=== PATIENT | female | born 1980 | race Caucasian/White ===

== ENCOUNTER 2019-11-03 21:15 | Emergency (ER) | payer SELFPAY ==
--- NOTE | 2019-11-03 22:57 | ER ---
Nurse's Notes [facility] Name: Karen Castañeda Age: 38 yrs Sex: Female : 1980 Arrival Date: 11/03/2019 Time: 21:20 Bed 2 Private MD: Diagnosis: Headache;Weakness Presentation: 11/02 21:22 Chief complaint: Patient states: "I've been dizzy all day, light- headed. Body pain, aj1 headache." Denies fever. Coronavirus screen: The patient has NOT traveled to a country currently being monitored by the [facility] within the last 14 days. Ebola Screen: Patient denies travel to an Ebola-affected area in the 21 days before illness onset. Initial Sepsis Screen: Does the patient meet any 2 criteria? HR > 90 bpm. No. Patient's initial sepsis screen is negative. Does the patient have a suspected source of infection? No. Patient's initial sepsis screen is negative. Risk Assessment: Do you want to hurt yourself or someone else? Patient reports no desire to harm self or others. 21:22 Method Of Arrival: Ambulatory [facility] 21:22 Acuity: BASSEM 3 aj1 21:22 Onset of symptoms was November 03, 2019. rr5 Triage Assessment: 21:24 Headache History: Denies prior headaches. General: Appears in no apparent distress. aj1 comfortable, Behavior is calm, cooperative, appropriate for age. Pain: Pain currently is 8 out of 10 on a pain scale. Pain began this morning Also complains of dizziness. Neuro: Level of Consciousness is awake, alert, obeys commands, Oriented to person, place, time, situation, Moves all extremities. Full function Gait is steady, Speech is normal, Facial symmetry appears normal, Reports dizziness, headache. Cardiovascular: Patient's skin is warm and dry. Respiratory: Airway is patent Respiratory effort is even, unlabored, Respiratory pattern is regular, symmetrical. 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 - Social history:: Smoking status: Patient reports the use of cigarette tobacco products, smokes one-half pack cigarettes per day. - Family history:: not pertinent. Screenin:00 Abuse screen: Denies threats or abuse. Denies injuries from another. Nutritional rr5 screening: No deficits noted. Tuberculosis screening: No symptoms or risk factors identified. Fall Risk None identified. Total Momin Fall Scale indicates No Risk (0-24 pts). Assessment: 22:30 General: Appears in no apparent distress. uncomfortable, Behavior is calm, cooperative, rr5 appropriate for age. Pain: Complains of pain in generalized Pain currently is 8 out of 10 on a pain scale. Quality of pain is described as aching, Pain began gradually, Is intermittent. Neuro: Level of Consciousness is awake, alert, obeys commands, Oriented to person, place, time, Reports dizziness, headache light headedness. 22:30 Cardiovascular: Capillary refill < 3 seconds Patient's skin is warm and dry. rr5 Respiratory: Airway is patent Trachea midline Respiratory effort is even, unlabored, Respiratory pattern is regular, symmetrical. GI: No signs and/or symptoms were reported involving the gastrointestinal system. : No signs and/or symptoms were reported regarding the genitourinary system. EENT: No signs and/or symptoms were reported regarding the EENT system. Derm: Skin is intact, is healthy with good turgor, Skin temperature is warm. Musculoskeletal: Circulation, motion, and sensation intact. Capillary refill < 3 seconds. 23:14 Reassessment: Patient appears in no apparent distress at this time. Patient is alert, rr5 oriented x 3, equal unlabored respirations, skin warm/dry/pink. discharge instruction given and explained without complaints made. 23:14 Reassessment: no nausea or vomiting reported. rr5 Vital Signs: 21:24 BP 125 / 84; Pulse 99; Resp 18; Temp 98.2; Pulse Ox 100% on R/A; Height 5 ft. 9 in. aj1 (175.26 cm); Pain 8/10; 22:00 BP 119 / 80; Pulse 90; Resp 15; Pulse Ox 100% ; rr5 23:00 BP 121 / 75; Pulse 89; Resp 17; Pulse Ox 99% ; rr5 ED Course: 21:20 Patient arrived in ED. jg7 21:24 Triage completed. aj1 21:24 Arm band placed on Patient placed in waiting room, Patient notified of wait time. aj1 21:55 Aidan Earl MD is Attending Physician. [facility] 22:00 Patient has correct armband on for positive identification. Bed in low position. Call rr5 light in reach. Side rails up X2. 22:00 Pulse ox on. NIBP on. rr5 22:02 Karan Manrique, RN is Primary Nurse. rr5 23:13 No provider procedures requiring assistance completed. Patient did not have IV access rr5 during this emergency room visit. Administered Medications: 23:00 Drug: Tylenol 650 mg Route: PO; rr5 23:15 Follow up: Response: Medication administered at discharge. rr5 Outcome: 22:57 Discharge ordered by . [facility] 23:13 Discharged to home ambulatory. rr5 23:13 Condition: stable 23:13 Discharge instructions given to patient, Instructed on discharge instructions, follow up and referral plans. Demonstrated understanding of instructions, follow-up care. 23:15 Patient left the ED. rr5 Signatures: Yumiko Martinez RN RN aj1 Aidan Earl MD MD cha Roque, Raymond, RN RN rr5 Yessenia Arnold jg7
--- NOTE | 2019-11-03 22:58 | EDPHYS ---
Physician Documentation [facility] Name: Karen Castañeda Age: 38 yrs Sex: Female : 1980 Arrival Date: 11/03/2019 Time: 21:20 Bed 2 Private MD: ED Physician Aidan Earl HPI: 11/02 22:53 This 38 yrs old Female presents to ER via Ambulatory with complaints of julieth Dizziness, Headache, BODY ACHES. 22:53 The patient presents with dizziness, generalized weakness. Onset: The symptoms/episode julieth began/occurred this morning. Context: occurred at home. Modifying factors: The symptoms are alleviated by nothing, the symptoms are aggravated by nothing. Associated signs and symptoms: The patient has no apparent associated signs or symptoms. Severity of symptoms: At their worst the symptoms were mild in the emergency department the symptoms are unchanged. Patient's baseline: Neuro: alert and fully oriented. The patient has not experienced similar symptoms in the past. 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 - Social history:: Smoking status: Patient reports the use of cigarette tobacco products, smokes one-half pack cigarettes per day. - Family history:: not pertinent. ROS: 22:53 Constitutional: Negative for fever, chills, and weight loss, Eyes: Negative for injury, julieth pain, redness, and discharge, ENT: Negative for injury, pain, and discharge, Neck: Negative for injury, pain, and swelling, Cardiovascular: Negative for chest pain, palpitations, and edema, Respiratory: Negative for shortness of breath, cough, wheezing, and pleuritic chest pain, Abdomen/GI: Negative for abdominal pain, nausea, vomiting, diarrhea, and constipation, Back: Negative for injury and pain, : Negative for injury, bleeding, discharge, and swelling, MS/Extremity: Negative for injury and deformity, Skin: Negative for injury, rash, and discoloration, Psych: Negative for depression, anxiety, suicide ideation, homicidal ideation, and hallucinations, Allergy/Immunology: Negative for hives, rash, and allergies, Endocrine: Negative for neck swelling, polydipsia, polyuria, polyphagia, and marked weight changes, Hematologic/Lymphatic: Negative for swollen nodes, abnormal bleeding, and unusual bruising. 22:53 Neuro: Positive for headache, weakness. Exam: 22:53 Constitutional: This is a well developed, well nourished patient who is awake, alert, julieth and in no acute distress. Head/Face: Normocephalic, atraumatic. Eyes: Pupils equal round and reactive to light, extra-ocular motions intact. Lids and lashes normal. Conjunctiva and sclera are non-icteric and not injected. Cornea within normal limits. Periorbital areas with no swelling, redness, or edema. ENT: Nares patent. No nasal discharge, no septal abnormalities noted. Tympanic membranes are normal and external auditory canals are clear. Oropharynx with no redness, swelling, or masses, exudates, or evidence of obstruction, uvula midline. Mucous membranes moist. Neck: Trachea midline, no thyromegaly or masses palpated, and no cervical lymphadenopathy. Supple, full range of motion without nuchal rigidity, or vertebral point tenderness. No Meningismus. Chest/axilla: Normal chest wall appearance and motion. Nontender with no deformity. No lesions are appreciated. Cardiovascular: Regular rate and rhythm with a normal S1 and S2. No gallops, murmurs, or rubs. Normal PMI, no JVD. No pulse deficits. Respiratory: Lungs have equal breath sounds bilaterally, clear to auscultation and percussion. No rales, rhonchi or wheezes noted. No increased work of breathing, no retractions or nasal flaring. Abdomen/GI: Soft, non-tender, with normal bowel sounds. No distension or tympany. No guarding or rebound. No evidence of tenderness throughout. Back: No spinal tenderness. No costovertebral tenderness. Full range of motion. Skin: Warm, dry with normal turgor. Normal color with no rashes, no lesions, and no evidence of cellulitis. MS/ Extremity: Pulses equal, no cyanosis. Neurovascular intact. Full, normal range of motion. Neuro: Awake and alert, GCS 15, oriented to person, place, time, and situation. Cranial nerves II-XII grossly intact. Motor strength 5/5 in all extremities. Sensory grossly intact. Cerebellar exam normal. Normal gait. Psych: Awake, alert, with orientation to person, place and time. Behavior, mood, and affect are within normal limits. 22:53 Neck: ROM/movement: is normal, no acute changes. 22:53 Musculoskeletal/extremity: DVT Exam: No signs of deep vein thrombosis. no pain, no swelling, no tenderness, negative Homans' sign noted on exam, no appreciated bluish discoloration, no erythema, no increased warmth. Vital Signs: 21:24 BP 125 / 84; Pulse 99; Resp 18; Temp 98.2; Pulse Ox 100% on R/A; Height 5 ft. 9 in. aj1 (175.26 cm); Pain 8/10; 22:00 BP 119 / 80; Pulse 90; Resp 15; Pulse Ox 100% ; rr5 23:00 BP 121 / 75; Pulse 89; Resp 17; Pulse Ox 99% ; rr5 MDM: 21:55 [facility] screened. [facility] 11/02 22:53 Order name: PO challenge; Complete Time: 23:07 [facility] Administered Medications: 23:00 Drug: Tylenol 650 mg Route: PO; rr5 23:15 Follow up: Response: Medication administered at discharge. rr5 Disposition: 11/03/19 22:57 Discharged to Home. Impression: Headache, Weakness. - Condition is Stable. - Discharge Instructions: General Headache Without Cause, Weakness, Fatigue, Weakness, [id number], General Headache Without Cause, [id number]. - Work release form, Medication Reconciliation Form, Thank You Letter, Antibiotic Education, Prescription Opioid Use form. - Follow up: Private Physician; When: 2 - 3 days; Reason: Recheck today's complaints, Continuance of care, Re-evaluation by your physician. - Problem is new. - Symptoms have improved. Signatures: Yumiko Martinez RN RN aj1 Aidan Earl MD MD cha Roque, Raymond, RN RN rr5 Corrections: (The following items were deleted from the chart) 23:15 22:57 11/03/2019 22:57 Discharged to Home. Impression: Headache; Weakness. Condition is rr5 Stable. Forms are Medication Reconciliation Form, Thank You Letter, Antibiotic Education, Prescription Opioid Use. Follow up: Private Physician; When: 2 - 3 days; Reason: Recheck today's complaints, Continuance of care, Re-evaluation by your physician. Problem is new. Symptoms have improved. julieth
[2019-11-03] MEDS ORDERED: ACETAMINOPHEN 325 MG TABLET ONE (23:07)
[2019-11-03 23:49] VITALS: BP 125/84; TEMP 98.2; O2SAT 100
== END 2019-11-03 23:15 | disposition home or self-care (01) ==
LOC: ER 21:15
DX: R53.1 Weakness (principal); F17.210 Nicotine dependence, cigarettes, uncomplicated
CPT/HCPCS: 99283

== ENCOUNTER 2019-12-25 13:37 | Emergency (ER) | payer SELFPAY ==
--- NOTE | 2019-12-25 16:05 | RAD REPORT ---
EXAM DESCRIPTION: RAD - Chest Pa And Lat (2 Views) - 12/25/2019 2:58 pm CLINICAL HISTORY: Cough;SOB Chest pain. COMPARISON: Chest Single View dated 11/14/2016; CHEST SINGLE VIEW dated 05/31/2015 FINDINGS: The lungs are clear. The heart is normal in size. No displaced fractures. IMPRESSION: No acute or concerning finding suspected.
--- NOTE | 2019-12-25 16:08 | ER ---
Nurse's Notes [facility] Name: Karen Castañeda Age: 39 yrs Sex: Female : 1980 Arrival Date: 12/25/2019 Time: 13:38 Bed 15 Private MD: Diagnosis: Acute bronchitis, unspecified Presentation: 12/24 14:08 Chief complaint: Patient states: "SOB at work, shaking real bad. I was sweating all ca1 night for the past 2 nights and everything seems 'distant'". Reports cough x 3 days. Coronavirus screen: Surgical mask placed on patient. Patient moved to private room, placed in contact and droplet isolation with eye protection until further assessment. Patient reports a cough. Patient reports shortness of breath or difficulty breathing. Patient denies measured and/or subjective temperature greater than 100.4F prior to today's visit. Patient denies travel on a cruise ship or to a country the [facility] currently lists as an affected area. Patient denies contact with known and/or suspected case of COVID-19. Ebola Screen: Patient negative for fever greater than or equal to 101.5 degrees Fahrenheit, and additional compatible Ebola Virus Disease symptoms Patient denies exposure to infectious person. Patient denies travel to an Ebola-affected area in the 21 days before illness onset. No symptoms or risks identified at this time. Initial Sepsis Screen: Does the patient meet any 2 criteria? No. Patient's initial sepsis screen is negative. Does the patient have a suspected source of infection? No. Patient's initial sepsis screen is negative. Risk Assessment: Do you want to hurt yourself or someone else? Patient reports no desire to harm self or others. Onset of symptoms was December 25, 2019. 14:08 Method Of Arrival: Ambulatory ca1 14:08 Acuity: BASSEM 3 ca1 12/25 09:12 Coronavirus screen: [facility] Department has been notified of ss person under investigation for COVID-19. PUI#: [id number]. Triage Assessment: 12/24 14:28 Respiratory: the patient has mild shortness of breath. 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 - Social history:: Smoking status: Patient reports the use of cigarette tobacco products, smokes one-half pack cigarettes per day. Screenin:28 Abuse screen: Denies threats or abuse. Nutritional screening: No deficits noted. rb1 Tuberculosis screening: No symptoms or risk factors identified. Fall Risk None identified. Assessment: 14:28 General: Appears in no apparent distress. comfortable, Behavior is calm, cooperative. rb1 General: Reports chills for feeling ill for 2-3 days, Sweating and having chills x 2 days. General: Pt. reports feeling shaky . Pain: Denies pain. Neuro: Level of Consciousness is awake, alert, obeys commands, Oriented to person, place, time, situation. Cardiovascular: Rhythm is regular. Respiratory: Reports shortness of breath cough that is x 3 days Airway is patent Respiratory effort is even, unlabored, Respiratory pattern is regular, symmetrical. GI: No signs and/or symptoms were reported involving the gastrointestinal system. : No signs and/or symptoms were reported regarding the genitourinary system. Derm: Skin is pink, warm \\T\\ dry. 15:28 Reassessment: Patient appears in no apparent distress at this time. No changes from rb1 previously documented assessment. 16:28 Reassessment: Patient appears in no apparent distress at this time. Patient and/or rb1 family updated on plan of care and expected duration. Pain level reassessed. Patient is alert, oriented x 3, equal unlabored respirations, skin warm/dry/pink. Patient denies pain at this time. Vital Signs: 14:08 BP 131 / 100; Pulse 92; Resp 20 S; Temp 98.2(O); Pulse Ox 97% on R/A; Weight 86.18 kg ca1 (R); Height 5 ft. 9 in. (175.26 cm) (R); Pain 0/10; 15:15 BP 120 / 88; Pulse 83; Resp 19; Pulse Ox 95% on R/A; Pain 0/10; rb1 16:15 BP 125 / 91; Pulse 98; Resp 17; Pulse Ox 99% ; rb1 14:08 Body Mass Index 28.06 (86.18 kg, 175.26 cm) ca1 ED Course: 13:38 Patient arrived in ED. ag5 14:10 Triage completed. ca1 14:11 Arm band placed on right wrist. ca1 14:14 Aidan Petty PA is PHCP. cp 14:14 Mukesh Serra MD is Attending Physician. cp 14:28 Patient has correct armband on for positive identification. Bed in low position. Call rb1 light in reach. Side rails up X 1. Pulse ox on. NIBP on. Warm blanket given. 14:29 Yaima Mayers, RN is Primary Nurse. rb1 14:58 XRAY Chest Pa And Lat (2 Views) In Process Unspecified. EDMS 16:45 No provider procedures requiring assistance completed. Patient did not have IV access rb1 during this emergency room visit. Administered Medications: No medications were administered Outcome: 16:07 Discharge ordered by MD. cp 16:45 Patient left the ED. rb1 16:45 Discharged to home ambulatory. rb1 16:45 Condition: stable 16:45 Discharge instructions given to patient, Instructed on discharge instructions, follow up and referral plans. medication usage, Demonstrated understanding of instructions, follow-up care, medications, Prescriptions given X 2. Addendum: 12/27/2019 15:07 Addendum: Other pt notified of negative COVID-19 swab results. Pt advised to continue d m5 to monitor symptoms, to remain in isolation until symptom free for 72 hours without medication and to return to the ED if symptoms worsen. 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 Patient reports shortness of breath ca1 or difficulty breathing. Patient denies measured and/or subjective temperature greater than 100.4F prior to today's visit. Patient denies travel on a cruise ship or to a country the [facility] currently lists as an affected area. Patient denies contact with known and/or suspected case of COVID-19. ca1 14:16 14:08 Coronavirus screen: Surgical mask placed on patient. Patient moved to private ca1 room, placed in contact and droplet isolation with eye protection until further assessment. Patient reports a cough. Patient reports shortness of breath or difficulty breathing. Patient denies measured and/or subjective temperature greater than 100.4F prior to today's visit. Patient denies travel on a cruise ship or to a country the [facility] currently lists as an affected area. Patient denies contact with known and/or suspected case of COVID-19. ca1
--- NOTE | 2019-12-25 16:08 | EDPHYS ---
Physician Documentation [facility] Name: Karen Castañeda Age: 39 yrs Sex: Female : 1980 Arrival Date: 12/25/2019 Time: 13:38 Bed 15 Private MD: ED Physician Mukesh Serra HPI: 12/24 14:35 This 39 yrs old Female presents to ER via Ambulatory with complaints of cp Shortness Of Breath. 14:35 The patient has shortness of breath with light activity. Onset: The symptoms/episode cp began/occurred 3 day(s) ago. Associated signs and symptoms: Pertinent positives: non-productive cough, fever, Pertinent negatives: chest pain, vomiting. Severity of symptoms: in the emergency department the symptoms are unchanged despite home interventions. 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 - Social history:: Smoking status: Patient reports the use of cigarette tobacco products, smokes one-half pack cigarettes per day. ROS: 14:38 Eyes: Negative for injury, pain, redness, and discharge. cp 14:38 Constitutional: Negative for body aches, chills, fever, poor PO intake. 14:38 ENT: Negative for drainage from ear(s), ear pain, sore throat, difficulty swallowing, difficulty handling secretions. 14:38 Cardiovascular: Negative for chest pain, edema, palpitations. 14:38 Respiratory: Positive for cough, with no reported sputum, shortness of breath, Negative for wheezing. 14:38 Abdomen/GI: Negative for abdominal pain, vomiting, diarrhea, constipation. 14:38 Back: Negative for injury or acute deformity. 14:38 : Negative for urinary symptoms. 14:38 Neuro: Negative for altered mental status, headache, weakness. 14:38 All other systems are negative. Exam: 14:45 Constitutional: The patient appears in no acute distress, alert, awake, non-toxic, well cp developed, well nourished. 14:45 Head/Face: Normocephalic, atraumatic. cp 14:45 Eyes: Periorbital structures: appear normal, Conjunctiva: normal, no exudate, no injection, Sclera: no appreciated abnormality, Lids and lashes: appear normal, bilaterally. 14:45 ENT: External ear(s): are unremarkable, Nose: is normal, Mouth: is normal, Posterior pharynx: is normal, airway is patent, no erythema, no exudate. 14:45 Neck: ROM/movement: is normal, is supple, without pain, no range of motions limitations, no meningismus. 14:45 Chest/axilla: Inspection: normal, Palpation: is normal, no crepitus, no tenderness. 14:45 Cardiovascular: Rate: normal, Rhythm: regular. 14:45 Respiratory: the patient does not display signs of respiratory distress, Respirations: normal, no use of accessory muscles, no retractions, labored breathing, is not present, Breath sounds: are clear throughout, no decreased breath sounds, no stridor, no wheezing. 14:45 Abdomen/GI: Exam negative for discomfort, distension, guarding, Inspection: abdomen appears normal. 14:45 Skin: no rash present. Vital Signs: 14:08 BP 131 / 100; Pulse 92; Resp 20 S; Temp 98.2(O); Pulse Ox 97% on R/A; Weight 86.18 kg ca1 (R); Height 5 ft. 9 in. (175.26 cm) (R); Pain 0/10; 15:15 BP 120 / 88; Pulse 83; Resp 19; Pulse Ox 95% on R/A; Pain 0/10; rb1 16:15 BP 125 / 91; Pulse 98; Resp 17; Pulse Ox 99% ; rb1 14:08 Body Mass Index 28.06 (86.18 kg, 175.26 cm) ca1 MDM: 14:15 Patient medically screened. cp 15:23 Test interpretation: by ED physician or midlevel provider: chest xray negative for cp infiltrates or focal pneumonia. 16:05 Data reviewed: vital signs, nurses notes, lab test result(s), radiologic studies, plain cp films. 16:05 Differential diagnosis: asthma, Bronchitis pneumonia, pulmonary edema, Pulmonary cp Embolism reactive airway disease. Antibiotic administration: Not indicated, the patient does not have an appreciated infiltrate. Counseling: I had a detailed discussion with the patient and/or guardian regarding: the historical points, exam findings, and any diagnostic results supporting the discharge/admit diagnosis, lab results, radiology results, to return to the emergency department if symptoms worsen or persist or if there are any questions or concerns that arise at home, smoking cessation. ED course: VSS. Patient appears non-toxic and no signs of respiratory distress observed. Will discharge to home for continued monitoring. COVID-19 testing performed and patient instructed to self quarantine while awaiting results. 12/24 14:27 Order name: Influenza Screen (a \T\ B); Complete Time: 15:38 12/24 15:38 Interpretation: Reviewed. 12/24 14:27 Order name: Strep; Complete Time: 15:38 12/24 15:38 Interpretation: Reviewed. 12/24 14:27 Order name: XRAY Chest Pa And Lat (2 Views); Complete Time: 16:11 12/24 16:12 Interpretation: Report reviewed. 12/24 14:27 Order name: COVID-19 12/24 15:19 Order name: Throat Culture EDMS Administered Medications: No medications were administered Disposition: 17:29 Co-signature as Attending Physician, Mukesh Serra MD. rn Disposition: 12/25/19 16:07 Discharged to Home. Impression: Acute bronchitis, unspecified. - Condition is Stable. - Discharge Instructions: Acute Bronchitis, Adult. - Prescriptions for Tessalon Perles 100 mg Oral Capsule - take 2 capsule by ORAL route every 8 hours As needed; 30 capsule. Albuterol Sulfate 90 mcg/actuation - inhale 1-2 puff by INHALATION route every 4-6 hours; 1 Inhaler. - Medication Reconciliation Form, Thank You Letter, Antibiotic Education, Prescription Opioid Use, Work release form form. - Follow up: Private Physician; When: 1 - 2 days; Reason: Worsening of condition. - Problem is new. - Symptoms have improved. Signatures: Dispatcher [employer] EDMS Mukesh Serra MD MD rn Page, Corey, PA PA cp Barber, Rebecca, RN RN rb1 Maggie Zimmerman RN RN ca1 Corrections: (The following items were deleted from the chart) 16:45 16:07 12/25/2019 16:07 Discharged to Home. Impression: Acute bronchitis, unspecified. rb1 Condition is Stable. Forms are Medication Reconciliation Form, Thank You Letter, Antibiotic Education, Prescription Opioid Use. Follow up: Private Physician; When: 1 - 2 days; Reason: Worsening of condition. Problem is new. Symptoms have improved. cp
[2019-12-25 16:52] VITALS: TEMP 98.2
[2019-12-25 16:54] VITALS: BP 120/88; O2SAT 95
== END 2019-12-25 16:45 | disposition home or self-care (01) ==
LOC: ER 13:37
DX: J20.9 Acute bronchitis, unspecified (principal); Z20.828 Contact with and (suspected) exposure to other viral communicable diseases; F17.210 Nicotine dependence, cigarettes, uncomplicated
CPT/HCPCS: 71046; 87070; 87081; 87804; 99283; U0001

== ENCOUNTER 2020-02-22 01:24 | Emergency (ER) | payer SELFPAY, OTHER ==
--- OUTSIDE RECORDS SUMMARY | 2020-02-22 01:26 | XMS REPORT | Continuity of Care Document ---
:1980 Author Organization [facility] t Address [address] [place] [address] Care Team Providers Name Role Phone Gladys Moss Attending Clinician Problems This patient has no known problems. Allergies, Adverse Reactions, Alerts This patient has no known allergies or adverse reactions. Medications This patient has no known medications. Procedures This patient has no known procedures. Encounters Start End Encounter Admission Attending Care Care Encounter Source Date/Time Date/Time Type Type Clinicians Facility Department ID 2020-01-16 2020-01-16 Emergency MARGY Lemus [id number] 17:33:42 19:26:00 Valdemar Aguilar [id number] [place] [id number] [place] [id number] Results This patient has no known results.
--- OUTSIDE RECORDS SUMMARY | 2020-02-22 01:27 | XMS REPORT | Summary of Care ---
:1980 Author Organization [facility] - Health Address [address] [place] [id number] Care Team Providers Name Role Phone Pcp, Does Not Have A Primary Care Provider Reason for Visit Reason Comments SCIATICA right Auth/Cert Status Reason Specialty Diagnoses / Referred By Referred To Procedures Contact Contact Emergency Medicine Adc Em ergency Dept [address] [facility] 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 methocarbamol Take 1 tablet by 20 tablet 0 01/16/2020 Active (ROBAXIN-750) 750 mg mouth 4 (four) tabletIndications: Acute times daily as right-sided low back needed for Pain pain with right-sided (scale 7-10). sciatica documented as of this encounter (statuses as of 01/16/2020) Active Problems No known active problemsdocumented as of this encounter (statuses as of 01/16/2020) Social History Tobacco Use Types Packs/Day Years Used Date Current Every Day Smoker Cigarettes 0.1 15 Smokeless Tobacco: Never Used Comments: Number given to quit smoking Alcohol Use Drinks/Week oz/Week Comments No Sex Assigned at Date Recorded Not on file Job Start Date Occupation Industry Not on file Not on file Not on file Travel History Travel Start Travel End No recent travel history available. COVID-19 Exposure Response Date Recorded In the last month, have you been in contact with No / Unsure 01/16/2020 5:26 PM CDT someone who was confirmed or suspected to have Coronavirus / COVID-19? documented as of this encounter Last Filed Vital Signs Vital Sign Reading Time Taken Comments Blood Pressure 121/69 01/16/2020 5:31 PM CDT Pulse 90 01/16/2020 5:31 PM CDT Temperature 37.2 C (98.9 F) 01/16/2020 5:31 PM CDT Respiratory Rate 18 01/16/2020 5:31 PM CDT Oxygen Saturation 97% 01/16/2020 5:31 PM CDT Inhaled Oxygen Concentration - - Weight 99.8 kg (220 lb) 01/16/2020 5:31 PM CDT Height 175.3 cm (5' 9") 01/16/2020 5:31 PM CDT Body Mass Index 32.49 01/16/2020 5:31 PM CDT documented in this encounter Discharge Instructions Valdemar Rebolledo FNP - 01/16/2020DIAGNOSIS 1. Back Pain NO LIFE-THREATENING FINDINGS ON TODAY'S EXAM. RECOMMEND FOLLOW-UP WITH A PRIMARY CARE PROVIDER OR SPECIALIST IN 2-5 DAYS, ESPECIALLY IF NO IMPROVEMENT IN SYMPTOMS. MAY FOLLOW-UP WITH A PROVIDER OF YOUR CHOICE, SUCH : 1. A PHYSICIAN OF YOUR CHOICE 2. [address] [place] [address], [facility], [address] [place] [address]; [phone] 3. [facility], [address] [place] [address]; [phone] OR, IF YOU WISH TO FOLLOW-UP WITHIN THE [facility], MAY TRY THESE OPTIONS (CLINIC APPOINTMENTS AVAILABLE ON [id number] BASIS): 1. SCHEDULE AN APPOINTMENT ONLINE AT WWW[facility] 2. OR CALL THE [facility] ACCESS CENTER AT OR 3. OR CALL YOUR [facility] PHYSICIAN'S OFFICE DIRECTLY IF YOU ARE ALREADY AN ESTABLISHED [facility] PATIENT. RETURN TO ER FOR WORSENING OF SYMPTOMS. AttachmentsThe following attachments cannot be sent through Care Everywhere.Back Pain (Low): Self-Care (Northern Irish)Methocarbamol tablets (Northern Irish)Ibuprofen tablets and capsules (Northern Irish)documented in this encounter Plan of Treatment Health Maintenance Due Date Last Done Comments VARICELLA VACCINES (1 of 2 - 2-dose childhood series) 12/13/1983 PNEUMOCOCCAL 0-64 YEARS COMBINED SERIES (1 of 1 - 1988 PPSV23) DTaP,Tdap,and Td Vaccines (1 - Tdap) 1993 PAP SMEAR 12/08/2016 12/08/2013 INFLUENZA VACCINE (Season Ended) 2020 documented as of this encounter Procedures Procedure Name Priority Date/Time Associated Comments Diagnosis URINALYSIS STAT 01/16/2020 5:49 PM Acute right-sided Res ults for this CDT low back pain with procedure are in right-sided the results sciatica section. POCT TEST YOLA 01/16/2020 5:45 PM Acute right-si ded Results for this CDT low back pain with procedure are in right-sided the results sciatica section. NOTICE OF PRIVACY Routine 01/16/2020 5:26 PM PRACTICES CDT documented in this encounter Results Urinalysis (01/16/2020 5:49 PM CDT) Pathologist Sig nature APPEARANCE Hazy (A) Clear [facility] COLOR Yellow Yellow [facility] PH 6.0 4.8 - 8.0 [facility] SP GRAVITY 1.015 1.003 - 1.030 [facility] GLU U QUAL Normal Normal [facility] BLOOD Negative Negative [facility] KETONES Negative Negative [facility] PROTEIN Negative Negative [facility] UROBILIN Normal Normal [facility] BILIRUBIN Negative Negative [facility] NITRITE Negative Negative [facility] [place]UK [place] Negative Negative [facility] RBC/HPF <1 0 - 3 HPF [facility] WBC/HPF 1 0 - 5 HPF [facility] BACTERIA Few (A) Negative [facility] MUCOUS Moderate (A) Negative LPF [facility] SQ EPITH 9 HPF [facility] Specimen Urine - URINE, CLEAN CATCH Performing Organization Address City/State/Zipcode Phone Number [facility] CLIA: [id number], [address] POCT Test, Urine (01/16/2020 5:45 PM CDT) Pathologist Sig nature POCT PREG Negative On board controls acceptable Yes with C Line POCT PREG LOT # [id number] POCT PREG TEST DATE 03/23/2021 Specimen Urine - URINE, CLEAN CATCH documented in this encounter Visit Diagnoses Diagnosis Acute right-sided low back pain with rig ht-sided sciatica - Primary documented in this encounter Administered Medications Medication Order MAR Action Action Date Dose Rate Site cyclobenzaprine (FLEXERIL) tablet Given 01/16/2020 5:57 PM CDT 10 mg 10 mg 10 mg, Oral, ONCE, 1 dose, 01/16/20 at 1900, Routine dexamethasone (DECADRON PHOSPHATE) Given 01/16/2020 5:57 PM CDT 10 mg See Comment injection 10 mg 10 mg, Intramuscular, ONCE, 1 dose, 01/16/20 at 1900, STAT ketorolac (TORADOL) Given 01/16/2020 5:58 PM 30 mg Right Dorsogluteal-IM injection 30 mg CDT 30 mg, Intramuscular, ONCE, 1 dose, 01/16/20 at 1900, 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
[2020-02-22] MEDS ORDERED: PROMETHAZINE INJ 25 MG/ML AMP ONE (01:49)
[2020-02-22] MEDS ORDERED: NA CHLORIDE 0.9% 1,000 ML ONE (01:50)
[2020-02-22 02:18] LABS: Urine Bacteria 20-50 /HPF (<20); Urine Culture Reflex Order REFLEXED; Urine RBC <5 /HPF (NONE SEEN)
[2020-02-22 02:21] LABS: Absolute Lymphocytes (CBC) 2.1 K/uL (0.7-4.9); Basophils % 0.6 % (0-1.3); Hematocrit 45.4 % (36.0-45.0); Lymphocytes % 25.6 % (15.3-44.8); MPV 11.8 fL (7.6-11.3); RBC Red Blood Cell Count 5.08 M/uL (3.86-4.86)
[2020-02-22 02:34] LABS: Albumin 3.9 g/dL (3.4-5.0); Bilirubin Direct 0.2 mg/dL (0-0.2); Bilirubin Total 0.5 mg/dL (0.2-1.0); Protein, Total 7.8 g/dL (6.4-8.2)
--- NOTE | 2020-02-22 02:50 | ER ---
Nurse's Notes [facility] Name: Karen Castañeda Age: 39 yrs Sex: Female : 1980 Arrival Date: 02/22/2020 Time: 01:25 Bed 13 Private MD: Diagnosis: Vomiting;Dehydration;Hypokalemia Presentation: 02/21 01:32 Chief complaint: Patient states: C/O vomiting, nausea, chills and felt feverish that wh started yesterday morning. Coronavirus screen: Patient denies a cough. Patient denies shortness of breath or difficulty breathing. Patient reports a measured and/or subjective temperature greater than 100.4F. Patient denies travel on a cruise ship or to a country the [facility] currently lists as an affected area. Patient denies contact with known and/or suspected case of COVID-19. Ebola Screen: Patient negative for fever greater than or equal to 101.5 degrees Fahrenheit, and additional compatible Ebola Virus Disease symptoms Patient denies exposure to infectious person. Initial Sepsis Screen: Does the patient meet any 2 criteria? No. Patient's initial sepsis screen is negative. Does the patient have a suspected source of infection? No. Patient's initial sepsis screen is negative. Risk Assessment: Do you want to hurt yourself or someone else? Patient reports no desire to harm self or others. Onset of symptoms was February 22, 2020. 01:32 Method Of Arrival: Ambulatory 01:32 Acuity: BASSEM 3 01:35 Coronavirus screen: Proceed with normal triage. 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 - Social history:: Smoking status: Patient reports the use of cigarette tobacco products, smokes one-half pack cigarettes per day. Screenin:34 Abuse screen: Denies threats or abuse. Denies injuries from another. Nutritional screening: No deficits noted. Tuberculosis screening: No symptoms or risk factors identified. Fall Risk None identified. Assessment: :34 General: Appears in no apparent distress. Behavior is calm, cooperative, appropriate wh for age. Pain: Denies pain. Neuro: Level of Consciousness is awake, alert, obeys commands, Oriented to person, place, time, situation, Appropriate for age. Cardiovascular: Heart tones S1 S2. Respiratory: Airway is patent Respiratory effort is even, unlabored, Respiratory pattern is regular, symmetrical, Breath sounds are clear bilaterally. GI: Abdomen is flat, non-distended, Bowel sounds present X 4 quads. Abd is soft and non tender X 4 quads. Reports nausea, vomiting. : No signs and/or symptoms were reported regarding the genitourinary system. EENT: No signs and/or symptoms were reported regarding the EENT system. Derm: Skin is intact, is healthy with good turgor, Skin is pink, warm \T\ dry. normal. Musculoskeletal: Circulation, motion, and sensation intact. 02:56 Reassessment: Patient appears in no apparent distress at this time. No changes from previously documented assessment. Patient and/or family updated on plan of care and expected duration. Pain level reassessed. Patient is alert, oriented x 3, equal unlabored respirations, skin warm/dry/pink. Patient states feeling better. Patient states symptoms have improved. Vital Signs: 02:56 BP 105 / 69; Pulse 54; Resp 18; Pulse Ox 98% on R/A; wh ED Course: 01:25 Patient arrived in ED. ds1 01:27 Claudette Gallego is Primary Nurse. wh 01:33 Triage completed. wh 01:34 Arm band placed on right wrist. wh 01:35 Patient has correct armband on for positive identification. Placed in gown. Bed in low wh position. Call light in reach. Side rails up X 1. Pulse ox on. NIBP on. 01:36 Duke Restrepo PA is PHCP. jr8 01:36 Morgan Song MD is Attending Physician. jr8 01:39 Inserted saline lock: 20 gauge in right antecubital area, using aseptic technique. ea 02:57 No provider procedures requiring assistance completed. IV discontinued, intact, wh bleeding controlled, No redness/swelling at site. Administered Medications: 01:50 Drug: NS 0.9% 1000 ml Route: IV; Rate: 1000 ml; Site: right antecubital; 02:50 Follow up: Response: No adverse reaction; IV Status: Completed infusion 01:50 Drug: Promethazine 12.5 mg Route: IVP; Site: right antecubital; 02:50 Follow up: Response: No adverse reaction; Nausea is decreased 02:50 Drug: Potassium Chloride 40 mEq Route: PO; 02:57 Follow up: Response: No adverse reaction Outcome: 02:49 Discharge ordered by MD. montgomery 02:57 Discharged to home ambulatory. 02:57 Condition: stable 02:57 Discharge instructions given to patient, Instructed on discharge instructions, follow up and referral plans. medication usage, POC Demonstrated understanding of instructions, follow-up care, medications, POC Prescriptions given X 2. 02:57 Patient left the ED. Signatures: Shannan Paz ds1 Duke Resrtepo PA PA jr8 Nereyda Abdi RN RN ea [place], Winsy
--- NOTE | 2020-02-22 02:50 | EDPHYS ---
Physician Documentation [facility] Name: Karen Castañeda Age: 39 yrs Sex: Female : 1980 Arrival Date: 02/22/2020 Time: 01:25 Bed 13 Private MD: ED Physician Morgan Song HPI: 02/21 02:18 This 39 yrs old Female presents to ER via Ambulatory with complaints of jr8 Fever, Vomiting. 02:18 The patient reports fever, not measured (subjective). Onset: The symptoms/episode jr8 began/occurred acutely, 2 day(s) ago. Modifying factors: there are no obvious modifying factors. Associated signs and symptoms: Pertinent positives: nausea, vomiting. Severity of symptoms: At their worst the symptoms were moderate in the emergency department the symptoms are unchanged. The patient has not experienced similar symptoms in the past. The patient has not recently seen a physician. 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 - Social history:: Smoking status: Patient reports the use of cigarette tobacco products, smokes one-half pack cigarettes per day. ROS: 02:18 Eyes: Negative for injury, pain, redness, and discharge, ENT: Negative for injury, jr8 pain, and discharge, Neck: Negative for injury, pain, and swelling, Cardiovascular: Negative for chest pain, palpitations, and edema, Respiratory: Negative for shortness of breath, cough, wheezing, and pleuritic chest pain, Back: Negative for injury and pain, MS/Extremity: Negative for injury and deformity, Skin: Negative for injury, rash, and discoloration, Neuro: Negative for headache, weakness, numbness, tingling, and seizure. 02:18 Constitutional: Positive for fever. 02:18 Abdomen/GI: Positive for nausea and vomiting, Negative for abdominal pain, diarrhea, constipation, abdominal cramps, abdominal distension. Exam: 02:18 Eyes: Pupils equal round and reactive to light, extra-ocular motions intact. Lids and jr8 lashes normal. Conjunctiva and sclera are non-icteric and not injected. Cornea within normal limits. Periorbital areas with no swelling, redness, or edema. ENT: Nares patent. No nasal discharge, no septal abnormalities noted. Tympanic membranes are normal and external auditory canals are clear. Oropharynx with no redness, swelling, or masses, exudates, or evidence of obstruction, uvula midline. Mucous membranes moist. Neck: Trachea midline, no thyromegaly or masses palpated, and no cervical lymphadenopathy. Supple, full range of motion without nuchal rigidity, or vertebral point tenderness. No Meningismus. Cardiovascular: Regular rate and rhythm with a normal S1 and S2. No gallops, murmurs, or rubs. Normal PMI, no JVD. No pulse deficits. Respiratory: Lungs have equal breath sounds bilaterally, clear to auscultation and percussion. No rales, rhonchi or wheezes noted. No increased work of breathing, no retractions or nasal flaring. Abdomen/GI: Soft, non-tender, with normal bowel sounds. No distension or tympany. No guarding or rebound. No evidence of tenderness throughout. Back: No spinal tenderness. No costovertebral tenderness. Full range of motion. MS/ Extremity: Pulses equal, no cyanosis. Neurovascular intact. Full, normal range of motion. Neuro: Awake and alert, GCS 15, oriented to person, place, time, and situation. Cranial nerves II-XII grossly intact. Motor strength 5/5 in all extremities. Sensory grossly intact. Cerebellar exam normal. Normal gait. 02:18 Skin: Appearance: Color: pale, Temperature: cool, Moisture: diaphoretic. Vital Signs: 02:56 BP 105 / 69; Pulse 54; Resp 18; Pulse Ox 98% on R/A; wh MDM: 01:36 Patient medically screened. [facility] 02:48 Data reviewed: vital signs, nurses notes, lab test result(s), and as a result, I will jr discharge patient. Data interpreted: Pulse oximetry: on room air is 98 %. Interpretation: normal. Counseling: I had a detailed discussion with the patient and/or guardian regarding: the historical points, exam findings, and any diagnostic results supporting the discharge/admit diagnosis, lab results, the need for outpatient follow up, a family practitioner, to return to the emergency department if symptoms worsen or persist or if there are any questions or concerns that arise at home. Response to treatment: the patient's symptoms have markedly improved after treatment, patient is well hydrated. 02/21 01:37 Order name: Basic Metabolic Panel; Complete Time: 02:40 02/21 01:37 Order name: CBC with Diff; Complete Time: 02:33 02/21 01:37 Order name: Hepatic Function; Complete Time: 02:40 02/21 01:37 Order name: Lipase; Complete Time: 02:40 [facility] 02/21 01:37 Order name: Urine Microscopic Only; Complete Time: 02:33 02/21 02:02 Order name: Urine Dipstick--Ancillary (enter results) [facility] 02/21 01:37 Order name: IV Saline Lock; Complete Time: 01:40 02/21 01:37 Order name: Labs collected and sent; Complete Time: 02:11 02/21 01:37 Order name: Urine Test (obtain specimen); Complete Time: 01:50 02/21 02:02 Order name: Urine --Ancillary (enter results) [facility] 02/21 02:20 Order name: Urine Culture [facility] 02/21 01:37 Order name: Urine Dipstick-Ancillary (obtain specimen); Complete Time: 01:51 Administered Medications: 01:50 Drug: NS 0.9% 1000 ml Route: IV; Rate: 1000 ml; Site: right antecubital; 02:50 Follow up: Response: No adverse reaction; IV Status: Completed infusion 01:50 Drug: Promethazine 12.5 mg Route: IVP; Site: right antecubital; 02:50 Follow up: Response: No adverse reaction; Nausea is decreased 02:50 Drug: Potassium Chloride 40 mEq Route: PO; 02:57 Follow up: Response: No adverse reaction Disposition: 03:12 Co-signature as Attending Physician, Morgan Song MD. [email or web address] Disposition: 02/22/20 02:49 Discharged to Home. Impression: Vomiting, Dehydration, Hypokalemia. - Condition is Stable. - Discharge Instructions: Dehydration, Adult, Nausea and Vomiting, Adult. - Prescriptions for promethazine 25 mg Oral Tablet - take 1 tablet by ORAL route every 6 hours As needed; 20 tablet. Macrobid 100 mg Oral Capsule - take 1 capsule by ORAL route every 12 hours for 7 days; 14 capsule. - Medication Reconciliation Form, Thank You Letter, Antibiotic Education, Prescription Opioid Use form. - Follow up: Private Physician; When: 5 - 6 days; Reason: Recheck today's complaints, Continuance of care, Re-evaluation by your physician. - Problem is new. - Symptoms have improved. Signatures: Dispatcher [employer] [facility] Duke Restrepo PA PA [email or web address] Claudette Gallego Maurice, MD MD [email or web address] Corrections: (The following items were deleted from the chart) 02:57 02:49 02/22/2020 02:49 Discharged to Home. Impression: Vomiting; Dehydration; wh Hypokalemia. Condition is Stable. Forms are Medication Reconciliation Form, Thank You Letter, Antibiotic Education, Prescription Opioid Use. Follow up: Private Physician; When: 5 - 6 days; Reason: Recheck today's complaints, Continuance of care, Re-evaluation by your physician. Problem is new. Symptoms have improved. jr8
[2020-02-22] MEDS ORDERED: POTASSIUM CL SA 10 MEQ TAB PO ONE (02:56)
[2020-02-22 03:05] VITALS: BP 105/69; O2SAT 98
[2020-02-22 03:44] LABS: Urine Blood TRACE (NEG); Urine Glucose NEGATIVE (NEG); Urine Protein TRACE (NEG); Urine Specific Gravity >1.030 (1.005-1.030); Urine pH 5.5 (5.0-7.0)
== END 2020-02-22 02:57 | disposition home or self-care (01) ==
LOC: ER 01:24
DX: E86.0 Dehydration (principal); E87.6 Hypokalemia; F17.210 Nicotine dependence, cigarettes, uncomplicated
CPT/HCPCS: 36415; 80048; 80076; 81003; 81015; 81025; 83690; 85025; 87086; 87088; 96361; 96374; 99283; J2550; J7030